=== PATIENT | male | born 1960 | race Caucasian/White ===

== ENCOUNTER 2017-11-15 16:21 | Inpatient (IN) | payer OTHER ==
--- NOTE | 2017-11-15 16:36 | EDPHY ---
H & P Stated Complaint: low o2 per EMS, cough, chills Time Seen by Provider: 11/15/17 16:26 HPI/ROS: CHIEF COMPLAINT: Cough, hypoxemia HISTORY OF PRESENT ILLNESS: The patient presents to the ED with acute respiratory distress with associated cough, hypoxemia and tachypnea. [place] He traveled to [facility] yesterday. He initially felt better however had recurrence of his symptoms over the past day. The patient does have a history of metastatic esophageal cancer which is reportedly in remission. The patient does take some chronic pain medications for this condition. The patient denies any asymmetric calf pain or swelling. The patient denies prior history of lung disease. The patient reports his symptoms of tachypnea and dyspnea are moderate in nature. REVIEW OF SYSTEMS: A comprehensive 10 point review of systems is otherwise negative aside from elements mentioned in the history of present illness. Source: Patient Exam Limitations: No limitations - Personal History Current Tetanus/Diphtheria Vaccine: Unsure Current Tetanus Diphtheria and Acellular Pertussis (TDAP): Unsure - Medical/Surgical History Hx Asthma: No Hx Chronic Respiratory Disease: No Hx Diabetes: No Hx Cardiac Disease: No Hx Renal Disease: No Hx Cirrhosis: No Hx Alcoholism: No Hx HIV/AIDS: No Hx Splenectomy or Spleen Trauma: No Other PMH: PMH: esophageal CA w/ mets to back/soft tissue. - Social History Smoking Status: Never smoked - Physical Exam Exam: General Appearance: Alert, mild distress from tachypnea Eyes: Pupils equal and round no pallor or injection ENT, Mouth: Mucous membranes moist Respiratory: Tachypneic, expiratory wheezing, rhonchi bilaterally Cardiovascular: Regular rate and rhythm Gastrointestinal: Abdomen is soft and nontender, no masses, bowel sounds normal Neurological: A&O, normal motor function, normal sensory exam, normal cranial nerves Skin: Warm and dry, no rashes Musculoskeletal: Neck is supple nontender Extremities: symmetrical, full range of motion Constitutional: Initial Vital Signs Temperature (C) 37.0 C 11/15/17 16:25 Heart Rate 101 H 11/15/17 16:25 Respiratory Rate 18 11/15/17 16:25 Blood Pressure 139/95 H 11/15/17 16:25 O2 Sat (%) 91 L 11/15/17 16:25 O2 Delivery Mode Room Air Allergies/Adverse Reactions: paclitaxel [From Taxol] Allergy (Verified 11/15/17 16:29) Home Medications: Medication Instructions Recorded Oxycontin 11/15/17 Medical Decision Making - Diagnostics Imaging Results: Imaging Impressions Chest X-Ray 11/15/17 16:34 Impression: Suspect left lower lung pneumonia superimposed upon airways disease. Results called and discussed with Dr. Castro on 11/15/2017 at 17:24. ED Course/Re-evaluation: The patient presents to the ED with fever, cough, hypoxia and congestion. The patient is noted to have influenza a. He does have a mild infiltrate noted on his chest x-ray. The patient received IV fluids for mild hyponatremia. The patient did have blood cultures x2 obtained. He is started on IV Levaquin to cover for concurrent pneumonia. The patient did receive 1 L of normal saline. He did received serial examinations in the ED by myself over a 2 hr period. I re-evaluated the patient at 6:00 p.m. and he is comfortable being admitted to the hospital for influenza, hypoxia and possible concurrent pneumonia. Consultation was made with Dr. Davis from the hospitalist service. He will admit the patient for observation this evening. Differential Diagnosis: Differential diagnosis considered includes asthma, bronchitis, pneumonia, pulmonary edema, influenza - Data Points Laboratory Results: Laboratory Results 11/15/17 16:48 11/15/17 16:48 11/15/17 11/15/17 11/15/17 16:48 16:48 16:48 WBC 14.65 10^3/uL H 10^3/uL (3.80-9.50) RBC 4.74 10^6/uL 10^6/uL (4.40-6.38) Hgb 14.0 g/dL g/dL (13.7-17.5) Hct 39.6 % L % (40.0-51.0) MCV 83.5 fL fL (81.5-99.8) MCH 29.5 pg pg (27.9-34.1) MCHC 35.4 g/dL g/dL (32.4-36.7) RDW 15.1 % % (11.5-15.2) Plt Count 230 10^3/uL 10^3/uL (150-400) MPV 9.3 fL fL (8.7-11.7) Neut % (Auto) Not Reported Lymph % (Auto) Not Reported Wells % (Auto) Not Reported Eos % (Auto) Not Reported Baso % (Auto) Not Reported Nucleat RBC Rel Count 0.0 % % (0.0-0.2) Absolute Neuts (auto) Not Reported Absolute Lymphs (auto) Not Reported Absolute Monos (auto) Not Reported Absolute Eos (auto) Not Reported Absolute Basos (auto) Not Reported Absolute Nucleated RBC 0.00 10^3/uL 10^3/uL (0-0.01) Immature Gran % Not Reported Seg Neutrophils % 47 % % Band Neutrophils % 51 % % Lymphocytes % 1 % % Monocytes % 1 % % Immature Gran # Not Reported Absolute Seg Neuts 6.89 10^/uL H 10^/uL (1.70-6.50) Absolute Band Neuts 7.47 10^3/uL H 10^3/uL (0.00-0.70) Absolute Lymphocytes 0.15 10^3/uL L 10^3/uL (1.00-3.00) Absolute Monocytes 0.15 10^3/uL L 10^3/uL (0.30-0.80) RBC/WBC/PLT Morphology NORMAL (NORMAL) Platelet Estimate ADEQUATE (ADEQ) Sodium 127 mEq/L L mEq/L (134-144) Potassium 4.4 mEq/L mEq/L (3.5-5.2) Chloride 92 mEq/L L mEq/L (97-110) Carbon Dioxide 19 mEq/l L mEq/l (22-31) Anion Gap 16 mEq/L mEq/L (8-16) BUN 10 mg/dL mg/dL (7-23) Creatinine 1.0 mg/dL mg/dL (0.7-1.3) Estimated GFR > 60 Glucose 120 mg/dL H mg/dL (70-100) Calcium 8.5 mg/dL mg/dL (8.5-10.4) Nasal Influenza A PCR FLU A DETECTED (NEGATIVE) Nasal Influenza B PCR NEGATIVE FOR FLU B (NEGATIVE) Medications Given: Discontinued Medications Sodium Chloride (Ns) 1,000 mls @ 0 mls/hr IV EDNOW ONE; Wide Open PRN Reason: Protocol Stop: 11/15/17 17:49 Last Admin: 11/15/17 18:01 Dose: 1,000 mls Oseltamivir Phosphate (Tamiflu) 75 mg PO EDNOW ONE Stop: 11/15/17 17:48 Last Admin: 11/15/17 18:01 Dose: 75 mg Departure - Departure Disposition: [facility] Clinical Impression: Pneumonia, Influenza A, Hypoxemia, Hyponatremia Condition: Fair
[2017-11-15 16:56] LABS: ADD MORPH? NO; ATYPICAL LYMPHOCYTE FLAG 0 (0-99); FRAGMENT RBC FLAG 0 (0-99); HEMATOCRIT 39.6 % (40.0-51.0); LIPEMIA HEMOLYSIS FLAG 90 (0-99); MEAN CELL HEMOGLOBIN 29.5 pg (27.9-34.1); MEAN CELL HEMOGLOBIN CONCENTR. 35.4 g/dL (32.4-36.7); MEAN CELL VOLUME 83.5 fL (81.5-99.8); MEAN PLATELET VOLUME 9.3 fL (8.7-11.7); PLATELET CLUMPS FLAG 0 (0-99); PLATELET COUNT 230 10^3/uL (150-400); RED BLOOD CELL COUNT 4.74 10^6/uL (4.40-6.38); RED CELL DISTRIBUTION WIDTH 15.1 % (11.5-15.2)
[2017-11-15 17:02] LABS: ADD DIFF? YES; LEFT SHIFT FLG 160 (0-99)
[2017-11-15 17:03] LABS: ADD SCAN? NO
[2017-11-15 17:05] LABS: ANION GAP 16 mEq/L (8-16); CALCIUM 8.5 mg/dL (8.5-10.4); CARBON DIOXIDE 19 mEq/l (22-31); CHLORIDE 92 mEq/L (97-110); GLOMERULAR FILTRATION RATE > 60; GLUCOSE 120 mg/dL (70-100); POTASSIUM 4.4 mEq/L (3.5-5.2); SODIUM 127 mEq/L (134-144)
[2017-11-15 17:21] LABS: PLATELET ESTIMATE ADEQUATE (ADEQ)
[2017-11-15] MEDS ORDERED: OSELTAMIVIR PHOSPHATE 75 MG CAP PO ONE (17:47)
[2017-11-15] MEDS ORDERED: NS 1,000 ML IV ONE (17:48)
[2017-11-15] MEDS ORDERED: oxyCODONE IR 5 MG TAB PO PRN (21:39)
[2017-11-15] MEDS ORDERED: PROMETHAZINE HCL 25 MG/ML INJ IVP PRN (21:39)
[2017-11-15] MEDS ORDERED: ACETAMINOPHEN 325 MG TAB PO PRN (21:39)
[2017-11-15] MEDS: NS 1,000 ML IV SCH (22:14)
[2017-11-15] MEDS: IBUPROFEN 600 MG TAB PO PRN (22:14)
--- NOTE | 2017-11-15 22:39 | GHP ---
[f rep st] HISTORY AND PHYSICAL DATE OF ADMISSION: 11/15/2017 CHIEF COMPLAINT: Cough and shortness of breath. PRIMARY CARE PROVIDER: [place], [place]. HISTORY OF PRESENT ILLNESS: The patient is a pleasant 57-year-old gentleman with a past medical hist ory of metastatic esophageal cancer, who is visiting [place] from [place], [place]. He and his developed respiratory symptoms when they went from [facility] to [place]. They tried using oxygen up ther e for a few days, but progressively got worse, and came to the [facility] for additional evaluation. In the emergency room, the workup was notable for positive influenza A testing. Chest imaging revealed a suspected left lower lobe pneumonia. The patient was requiring 2 L of oxygen to maintain normal saturations, and he is being admitted for respiratory support and cl ose monitoring. PAST MEDICAL HISTORY: Metastatic esophageal cancer. He states he was diagnosed approximately 7 year s ago, and had surgery and chemo and radiation, and then 2-3 years ago had a back pain, and was found to have metastatic lesions to the back. PAST SURGICAL HISTORY: Surgery related to esophageal cancer treatment. MEDICATIONS: This medication list is taken from the ambulatory orders: Oxycodone 5 mg q.i.d. daily p.r.n. ALLERGIES: Paclitaxel. SOCIAL HISTORY: The patient is currently . He has 2 children. He is a nonsmoker and current ly lives in [place], [place]. FAMILY HISTORY: Dad secondary to a stroke. Mom secondary to dementia. REVIEW OF SYSTEMS: CONSTITUTIONAL: Positive for fever and chills. ENT: Positive for recent cough. CARDIOVASCULAR: No complaints of chest pains, palpitations, or syncopal episodes. RESPIRATORY: Po sitive for subjective shortness of breath. GI: No significant nausea or diarrhea noted. : No re port of any difficulty with urination. NEUROLOGIC: No complaints of headaches or focal weakness. H EMATOLOGIC: No history of any deep vein thrombosis or pulmonary embolism. PSYCHIATRIC: No history of anxiety or depression. ENDOCRINE: No history of diabetes or thyroid abnormalities. SKIN: No re ported skin rashes. MUSCULOSKELETAL: No focal joint pains. PHYSICAL EXAM: VITAL SIGNS: Temperature 37, blood pressure is 139/95, heart rate 101, respirations 18, saturating 94% on 2 L nasal cannula. GENERAL: The patient is awake, alert, conversant, in no si gnificant distress. HEENT: Extraocular movements intact. Pupils equal. No scleral icterus. Mucou s membranes dry. NECK: Supple. No thyroid enlargement appreciated. CHEST: Productive cough is no hemant. Crackles noted at lung bases. No significant wheezing. HEART: Regular. No murmurs. ABDOMEN : Soft, nontender, nondistended. : No Constantino catheter in place. EXTREMITIES: No significant pit ting edema. NEUROLOGIC: Cranial nerves 2-12 appear intact. Strength 5/5 in extremities. LABS: White blood cell count 14, hemoglobin 14, platelets 230. Sodium 127, potassium 4.4, chloride 92, bicarb 19, BUN 10, creatinine 1.0, glucose 120. PCR testing positive for influenza A. Chest x-r ay left lower lobe infiltrate. ASSESSMENT/PLAN: 1. Acute hypoxic respiratory failure, suspecting secondary to influenza A with potential secondary b acterial pneumonia. I would not exclude the possibility of altitude related illness, and consider me dical treatment if not responding to treatment for influenza and bacterial pneumonia. Continue sched uled nebulizers and supplemental oxygen, along with continuous pulse oximetry at bedside. 2. His influenza. The patient has been started on Tamiflu. We will also continue with antibacteria l agent, Levaquin, to continue to cover for possible secondary bacterial pneumonia. 3. Hyponatremia, suspect hypovolemic related in light of concurrent illness. We will start IV fluid s and recheck in the morning. 4. Esophageal cancer. The patient has history of esophageal cancer, previously treated with surgery and chemotherapy, but had recurrence 2-3 years ago with back pain. Continue with oxycodone as neede d for pain. 5. Bowel and bladder. Consider bowel regimen if constipation develops. 6. Deep vein thrombosis prophylaxis, Lovenox. DISPOSITION: I anticipate he will be here for over 2 midnights, probably 3-5 days. /[id number]/MODL
--- NOTE | 2017-11-16 02:02 | PDMN ---
Medical Necessity Medical necessity: C/M review: Patient meets INPT criteria under MCG M-282 Pneumonia, community acquired; Acute and persistent - hypoxic respiratory failure, influenza A, potential secondary bacterial pneumonia, LLL infiltrate on CXR, hyponatremia, Na 127, WBC 14.65 shortness of breath, possible altitude altitude related illness, requiring ongoing IV Levaquin QD, IV fluids, Duonebs QID, oral Tamiflu, cardiac monitoring, pulse oximetry, supplemental O2, comorbid hx metastatic esophageal cancer treated with surgery, chemo, radiation , 7 yrs. ago, metastatic lesions to back 2-3 yrs. ago, patient visiting [place] from [place], [place]. anticipates > 2 [place] LOS for ongoing med nec fro eval and [place] of above.
[2017-11-16 05:32] LABS: ADD MORPH? NO; ADD SCAN? YES; ATYPICAL LYMPHOCYTE FLAG 0 (0-99); FRAGMENT RBC FLAG 0 (0-99); HEMATOCRIT 36.2 % (40.0-51.0); HEMOGLOBIN 12.5 g/dL (13.7-17.5); LIPEMIA HEMOLYSIS FLAG 90 (0-99); MEAN CELL HEMOGLOBIN 29.2 pg (27.9-34.1); MEAN CELL HEMOGLOBIN CONCENTR. 34.5 g/dL (32.4-36.7); MEAN CELL VOLUME 84.6 fL (81.5-99.8); PLATELET CLUMPS FLAG 0 (0-99); PLATELET COUNT 209 10^3/uL (150-400); RED BLOOD CELL COUNT 4.28 10^6/uL (4.40-6.38); RED CELL DISTRIBUTION WIDTH 15.4 % (11.5-15.2)
[2017-11-16] MEDS: IPRATROPIUM/ALBUTEROL 3 ML DEYVIAL IH SCH ×4 (05:33→21:32)
[2017-11-16 05:34] LABS: ANION GAP 13 mEq/L (8-16); CALCIUM 8.2 mg/dL (8.5-10.4); CARBON DIOXIDE 21 mEq/l (22-31); CHLORIDE 98 mEq/L (97-110); GLOMERULAR FILTRATION RATE > 60; GLUCOSE 100 mg/dL (70-100); POTASSIUM 4.4 mEq/L (3.5-5.2); SODIUM 132 mEq/L (134-144)
[2017-11-16 05:37] LABS: LEFT SHIFT FLG 160 (0-99)
[2017-11-16 06:04] LABS: ADD DIFF? YES; SCAN POSITIVE
[2017-11-16 06:06] LABS: PLATELET ESTIMATE ADEQUATE (ADEQ)
[2017-11-16] MEDS: OSELTAMIVIR PHOSPHATE 75 MG CAP PO SCH ×2 (07:57→17:28)
[2017-11-16] MEDS: IBUPROFEN 600 MG TAB PO PRN (07:57)
[2017-11-16] MEDS: ENOXAPARIN 40 MG/0.4 ML SYR SC SCH (08:00)
[2017-11-16] MEDS ORDERED: BENZONATATE 100 MG CAP PO PRN (08:57)
--- NOTE | 2017-11-16 11:48 | HOSPPROG ---
Hospitalist Progress Note Assessment/Plan: #Acute hypoxic resp failure: due to Flu A. Wean as tolerated. Possible PNA? Procalcitonin pending #Influenza A: Tamiflu. also hospitalized here with Flu #h/o metastatic esophageal cancer: not currently on chemo #Leukocytosis: improved #Hypovolemic hyponatremia: cont IVFs #Diet: ADAT tolerated #Disp: cont inpatient admission for IVFs, oxygen Subjective: minimal appetite. Dizzy Objective: Vital Signs Temp Pulse Resp BP Pulse Ox 36.6 C 87 18 123/73 H 92 11/16/17 08:00 11/16/17 10:12 11/16/17 10:12 11/16/17 08:00 11/16/17 10:12 Laboratory Results 11/16/17 05:07 11/16/17 05:07 11/15/17 11/16/17 11/17/17 05:59 05:59 05:59 Intake Total 1000 Output Total 225 Balance 775 - Physical Exam Constitutional: other (ill-appearing) Eyes: PERRL Ears, Nose, Mouth, Throat: dry mucous membranes Cardiovascular: regular rate and rhythym Respiratory: reduced air movement Gastrointestinal: normoactive bowel sounds Genitourinary: no bladder fullness Skin: warm Musculoskeletal: full muscle strength Neurologic: AAOx3, CN II-XII Intact Psychiatric: interacting appropriately ICD10 Worksheet Patient Problems: Problems Problem Status Onset Hyponatremia Acute Hypoxemia Acute Influenza A Acute Pneumonia Acute
[2017-11-16] MEDS: oxyCODONE IR 5 MG TAB PO SCH ×3 (12:59→20:30)
--- NOTE | 2017-11-16 14:25 | ASMTCMCOM ---
CM Note CM Note Notes: Patient admitted with Influenza A. He and his and two children are in [place] from [place] on a ski vacation. His is also currently admitted at [facility] with Influenza. Their children are supervising themselves at the [facility], and per patient, a family member is flying in to take care of them today. Patient will discharge independently when medically stable. Date Signed: 11/16/2017 02:25 PM Electronically Signed By:Deepika Gottlieb RN
[2017-11-16] MEDS: NS 1,000 ML IV SCH (15:48)
[2017-11-17] MEDS: IPRATROPIUM/ALBUTEROL 3 ML DEYVIAL IH SCH ×2 (04:49→08:53)
[2017-11-17 05:27] LABS: % IMMATURE GRANULYOCYTES 0.6 % (0.0-1.1); ABSOLUTE IMMATURE GRANULOCYTES 0.05 10^3/uL (0.00-0.10); ADD DIFF? NO; ADD MORPH? NO; ADD SCAN? NO; ATYPICAL LYMPHOCYTE FLAG 70 (0-99); FRAGMENT RBC FLAG 0 (0-99); HEMATOCRIT 37.2 % (40.0-51.0); HEMOGLOBIN 12.6 g/dL (13.7-17.5); LEFT SHIFT FLG 10 (0-99); LIPEMIA HEMOLYSIS FLAG 90 (0-99); MEAN CELL HEMOGLOBIN 29.2 pg (27.9-34.1); MEAN CELL HEMOGLOBIN CONCENTR. 33.9 g/dL (32.4-36.7); MEAN CELL VOLUME 86.3 fL (81.5-99.8); MEAN PLATELET VOLUME 9.8 fL (8.7-11.7); PLATELET CLUMPS FLAG 0 (0-99); PLATELET COUNT 259 10^3/uL (150-400); RED BLOOD CELL COUNT 4.31 10^6/uL (4.40-6.38); RED CELL DISTRIBUTION WIDTH 15.4 % (11.5-15.2)
[2017-11-17 05:42] LABS: ANION GAP 11 mEq/L (8-16); CALCIUM 8.8 mg/dL (8.5-10.4); CARBON DIOXIDE 23 mEq/l (22-31); CHLORIDE 103 mEq/L (97-110); CREATININE 0.9 mg/dL (0.7-1.3); GLOMERULAR FILTRATION RATE > 60; GLUCOSE 98 mg/dL (70-100); POTASSIUM 4.6 mEq/L (3.5-5.2); SODIUM 137 mEq/L (134-144)
[2017-11-17] MEDS: oxyCODONE IR 5 MG TAB PO SCH ×2 (06:06→12:39)
[2017-11-17 07:42] VITALS: BP 159/87
[2017-11-17] MEDS: OSELTAMIVIR PHOSPHATE 75 MG CAP PO SCH (08:13)
[2017-11-17] MEDS: ENOXAPARIN 40 MG/0.4 ML SYR SC SCH (08:14)
--- NOTE | 2017-11-17 11:15 | GDS ---
[f rep st] DISCHARGE SUMMARY DISCHARGE DIAGNOSES: 1. Influenza A. 2. Community-acquired pneumonia. 3. Acute hypoxic respiratory failure. 4. Leukocytosis. 5. Hypovolemic hyponatremia. 6. History of metastatic esophageal cancer, not on chemo. HISTORY OF PRESENT ILLNESS: A 57-year-old male with history of metastatic esophageal cancer, not on chemotherapy who is here in [place] visiting from [place] with his family. He and his developed respiratory symptoms when they went from [facility] to [place] and they tried using oxygen up there for few days. They got worse and came to [facility] for additional evaluation. He states that he had been having some myalgias and cough. HOSPITAL COURSE BY PROBLEM: 1. Acute hypoxic respiratory failure: Multifactorial with influenza A and community-acquired pneumonia. He had an elevated procalcitonin 2. Will treat with Tamiflu and Levaquin for 5 days total. Blood cultures remain negative. No longer required oxygen. 2. Influenza A: Tamiflu for 3 more days. 3. Hypovolemic hyponatremia, resolved with IV fluids. 4. Leukocytosis: Again, suspect secondary to acute viral bacterial infection. It has resolved. Blood cultures negative. 5. History of esophageal cancer, previously treated with surgery and chemo, but now has metastatic disease to back. He should follow up with his primary oncologist. He uses oxycodone for pain, which has been controlled here. PHYSICAL EXAM: VITAL SIGNS: Today, temperature 37.2, blood pressure 159/87, heart rate in the 80s, respirations 14, 92% on room air. GENERAL: Less ill-appearing more color to face. HEENT: PERRLA. EOMI. Mildly dry mucous membranes. CV: Regular rate and rhythm. No murmurs, gallops, or rubs. LUNGS: Rhonchorous, but improved from yesterday. ABDOMEN: Soft, nontender, nondistended. Positive bowel sounds. : No Constantino. MUSCULOSKELETAL: 5/5 upper and lower extremity strength. NEUROLOGIC: 2 through 12 intact. PSYCHIATRIC: Alert, oriented x3. Very tearful. DISPOSITION: Patient is stable for discharge. He will be staying at the [facility]. NEW MEDICATIONS: Tamiflu 75 mg twice daily for 3 days. Levaquin 750 mg for 3 days. Time spent on DC: 45 min counseling patient on treatment and coordinating discharge and medications /[id number]/MODL MTDD
[2017-11-17 13:57] VITALS: PULSE 77; RESP 16; TEMP 98.6; O2SAT 94
--- NOTE | 2017-11-18 10:09 | ASDISCHSUM ---
Discharge Information Plan Status:Home with No Needs Medically Cleared to Leave: Discharge Date:11/17/2017 03:17 PM CM D/C Disposition:Home, Routine, Self-Care ADT D/C Disposition:Home, Routine, Self-Care Projected Discharge Date:11/17/2017 03:17 PM Transportation at D/C:Family Discharge Delay Reason: Follow-Up Date:11/17/2017 03:17 PM Discharge Slot: Final Diagnosis: Placement Information Patient Contact Information Contact Name:CLARA Relationship: Address:[address] [place] [address] Work Phone: City:[place] Alternate Phone: [facility]/Zip Code:[place] [address] Email: Financial Information Financial Class:[facility] Primary Plan Desc:[facility] Primary Plan Number:[id number] Secondary Plan Desc: Secondary Plan Number: Assessment Information [facility] CM Progress Note CM Note CM Note Notes: Patient admitted with Influenza A. He and his and two children are in [place] from [place] on a ski vacation. His is also currently admitted at [facility] with Influenza. Their children are supervising themselves at the [facility], and per patient, a family member is flying in to take care of them today. Patient will discharge independently when medically stable. Date Signed: 11/16/2017 02:25 PM Electronically Signed By:Deepika Gottlieb RN Intervention Information
== END 2017-11-17 15:17 | disposition home or self-care (01) | DRG 193 ==
LOC: F3E 19:56
PROVIDERS: ADMIT Internal Medicine; ATTEND Internal Medicine
DX: J09.X1 Influenza due to identified novel influenza A virus with pneumonia (principal); J96.01 Acute respiratory failure with hypoxia; E87.1 Hypo-osmolality and hyponatremia; M54.9 Dorsalgia, unspecified; C79.51 Secondary malignant neoplasm of bone; Z85.01 Personal history of malignant neoplasm of esophagus
CPT/HCPCS: 96365; J1650; J1956